=== PATIENT | female | born 1965 | race African-American/Black ===

== ENCOUNTER 2024-02-24 18:44 | Emergency (ER) | payer SELFPAY ==
[~2024-02-24] VITALS: Ht 160 cm; Wt 68.0 kg
[2024-02-24 19:00] VITALS: BP 120/82; PULSE 96; RESP 16; TEMP 98.3; O2SAT 98
[2024-02-24] MEDS ORDERED: IBUP-2029 MT (21:23)
[2024-02-24] MEDS ORDERED: CYCL10TA21 MT (21:24)
== END 2024-02-24 22:35 | disposition home or self-care (01) ==
LOC: ER 18:44
DX: M25.561 Pain in right knee (principal); M25.562 Pain in left knee; F19.90 Other psychoactive substance use, unspecified, uncomplicated
CPT/HCPCS: 70486; 72170; 73560; 99284